=== PATIENT | male | born 1960 | race Caucasian/White ===

== ENCOUNTER 2018-09-14 11:19 | Emergency (ER) | payer OTHER, MEDICAID ==
--- NOTE | 2018-09-14 11:26 | EDPHY ---
H & P Time Seen by Provider: 09/14/18 11:21 HPI/ROS: CHIEF COMPLAINT: Episode of unresponsiveness HISTORY OF PRESENT ILLNESS: 58-year-old male with autism and seizure disorder presents after an episode of unresponsiveness. He was at the crisis Center and suddenly began staring off into space. This happened several times and staff felt that he was having an absence seizure. He apparently has a history of seizure disorder since childhood consisting of episodes of staring off into space. Not taking seizure medications. REVIEW OF SYSTEMS: complete 10 point ROS reviewed and is negative except for the noted elements in the HPI - Medical/Surgical History Hx Asthma: No Hx Chronic Respiratory Disease: No Hx Diabetes: No Hx Cardiac Disease: No Hx Renal Disease: No Hx Cirrhosis: No Hx Alcoholism: No Hx HIV/AIDS: No Hx Splenectomy or Spleen Trauma: No Other PMH: aspergers - Social History Smoking Status: Never smoked Alcohol Use: None Drug Use: None Additional Social History: Homeless - Physical Exam Exam: General Appearance: Alert, questions appropriately Eyes: Pupils equal and round, no conjunctival pallor ENT, Mouth: Mucous membranes moist Neck: Normal inspection Respiratory: Lungs are clear to auscultation Cardiovascular: Regular rate and rhythm Gastrointestinal: Abdomen is soft and nontender Neurological: Alert, oriented x3, cranial nerves II through XII intact, motor 5 /5, sensory intact to light touch Skin: Warm and dry Extremities: Normal inspection Psychiatric: Fluctuating affect Constitutional: Initial Vital Signs Temperature (C) 36.8 C 09/14/18 11:19 Heart Rate 91 09/14/18 11:19 Respiratory Rate 16 09/14/18 11:19 Blood Pressure 130/94 H 09/14/18 11:19 O2 Sat (%) 98 09/14/18 11:19 O2 Delivery Mode Room Air Allergies/Adverse Reactions: No Known Allergies Allergy (Unverified 06/18/18 17:18) Medical Decision Making - Diagnostics EKG Interpretation: EKG interpreted by me reveals sinus rhythm, rate 82, short FL interval, no ST or T segment changes. Interpretation: Borderline EKG. ED Course/Re-evaluation: This patient presents after possible absence seizure. He was observed in the emergency department and asymptomatic throughout his emergency department stay. I strongly encouraged him to follow up at the [facility] homeless outreach. I do not feel that he needs further evaluation or seizure medication today. Seizure precautions given. Differential Diagnosis: Differential diagnosis includes though it is not limited to status epilepticus, hypoglycemia, intracranial hemorrhage, CVA, benzodiazepine withdrawal, alcohol withdrawal, epilepsy. - Data Points Laboratory Results: Laboratory Results 09/14/18 11:25 09/14/18 11:25 09/14/18 09/14/18 11:25 11:25 WBC 9.13 10^3/uL 10^3/uL (3.80-9.50) RBC 5.07 10^6/uL 10^6/uL (4.40-6.38) Hgb 15.2 g/dL g/dL (13.7-17.5) Hct 44.6 % % (40.0-51.0) MCV 88.0 fL fL (81.5-99.8) MCH 30.0 pg pg (27.9-34.1) MCHC 34.1 g/dL g/dL (32.4-36.7) RDW 13.0 % % (11.5-15.2) Plt Count 269 10^3/uL 10^3/uL (150-400) MPV 11.3 fL fL (8.7-11.7) Neut % (Auto) 79.2 % H % (39.3-74.2) Lymph % (Auto) 15.6 % % (15.0-45.0) [place] % (Auto) 4.5 % % (4.5-13.0) Eos % (Auto) 0.2 % L % (0.6-7.6) Baso % (Auto) 0.3 % % (0.3-1.7) Nucleat RBC Rel Count 0.0 % % (0.0-0.2) Absolute Neuts (auto) 7.23 10^3/uL H 10^3/uL (1.70-6.50) Absolute Lymphs (auto) 1.42 10^3/uL 10^3/uL (1.00-3.00) Absolute Monos (auto) 0.41 10^3/uL 10^3/uL (0.30-0.80) Absolute Eos (auto) 0.02 10^3/uL L 10^3/uL (0.03-0.40) Absolute Basos (auto) 0.03 10^3/uL 10^3/uL (0.02-0.10) Absolute Nucleated RBC 0.00 10^3/uL 10^3/uL (0-0.01) Immature Gran % 0.2 % % (0.0-1.1) Immature Gran # 0.02 10^3/uL 10^3/uL (0.00-0.10) Sodium 136 mEq/L mEq/L (135-145) Potassium 4.1 mEq/L mEq/L (3.5-5.2) Chloride 102 mEq/L mEq/L (97-110) Carbon Dioxide 24 mEq/l mEq/l (22-31) Anion Gap 10 mEq/L mEq/L (6-14) BUN 21 mg/dL mg/dL (7-23) Creatinine 0.8 mg/dL mg/dL (0.7-1.3) Estimated GFR > 60 Glucose 168 mg/dL H mg/dL (70-100) Calcium 9.7 mg/dL mg/dL (8.5-10.4) Ethyl Alcohol < 10 mg/dL mg/dL (0-10) Departure - Departure Disposition: Home, Routine, Self-Care Clinical Impression: Absence seizure Condition: Good Instructions: Epilepsy (ED) Additional Instructions: Your blood sugar is elevated today. You may have diabetes. Follow-up at [facility] for further evaluation. The [facility] has walk-in appointments for the homeless at the following days/locations. No appointment is needed. Monday 8-10 am @ [facility] 11 AM-1 PM @ [facility] Monday 8-10:30 AM @ [facility] Monday 8-10 AM @ [facility] 2-4 PM @ [facility] Monday 8-10 AM @ [facility] Referrals: [facility],. [Clinic] - As per Instructions
[2018-09-14 11:44] LABS: PLATELET COUNT 269 10^3/uL (150-400)
[2018-09-14 12:25] VITALS: BP 145/82
--- NOTE | 2018-09-14 14:57 | CPEKG ---
Test Reason : OPEN Blood Pressure : / mmHG Vent. Rate : 081 BPM Atrial Rate : 082 BPM P-R Int : 091 ms QRS Dur : 080 ms QT Int : 361 ms P-R-T Axes : 056 -06 062 degrees QTc Int : 419 ms Sinus rhythm Short [place] interval Confirmed by Divina Ybarra ([id number]) on 09/14/2018 2:56:04 PM Referred By: DIVINA YBARRA Confirmed By:Divina Ybarra
--- NOTE | 2018-09-14 16:38 | ASMTCMCOM ---
CM Note CM Note Notes: Pt presented to the ED via EMS after having a seizure at [facility]. Pt was discharged from the ED before CM could speak to him. See CM Report 06/22/18 for additional background info. CM called [place] at [facility] and spoke w/PATO Hernandez Baker Helper and she states that pt was last seen there in 2017. Mary states she has spoken w/P and will hopefully be able to coordinate scheduling a follow-up appt for the pt. Mary states she think after pt was discharged from the ED, the pt went to [facility] to see about qualifying for a respite bed. Per CM Report 06/22/18, pt has stayed at [facility] in the past but prefers to sleep outside. Pt aware of the [facility]. CM available for further assistance if needed. Date Signed: 09/14/2018 04:38 PM Electronically Signed By:Hannah Lazo RN
== END 2018-09-14 12:23 | disposition home or self-care (01) ==
LOC: EDUNIT#
DX: G40.A09 Absence epileptic syndrome, not intractable, without status epilepticus (principal); F84.0 Autistic disorder; Z59.0 Homelessness
CPT/HCPCS: G0480

== ENCOUNTER 2018-09-16 12:02 | Emergency (ER) | payer OTHER, MEDICAID ==
--- NOTE | 2018-09-16 12:11 | EDPHY ---
General - History Smoking Status: Never smoked Time Seen by Provider: 09/16/18 12:05 Narrative: CLINICAL IMPRESSION: Altered mentation ASSESSMENT/PLAN: Patient is a 58-year-old male with a history of autism and seizure disorder currently on no medications who presents to the emergency department with altered mentation. Patient is afebrile, not toxic-appearing. He is alert to name only on initial evaluation. CT head revealed no evidence of acute abnormality, no evidence of intracranial hemorrhage or trauma. CBC revealed no evidence of leukocytosis, BMP grossly unremarkable. U tox positive for cannabinoids only. Alcohol negative. Urine negative for infectious process. There were no findings to suggest infectious process, traumatic head injury, seizure, TIA, CVA, metabolic abnormality, acute intoxication or toxidrome. Patient was evaluated by case management, he has been currently residing at the [facility] and staff there report that he is normally high functioning and this is not his baseline. Upon re-examination the patient reports psychiatric history however unsure of exact diagnosis, will have a formal psychiatric evaluation the emergency department. The patient remained hemodynamically stable under my care and denied any physical complaints. Dr. Gold will resume care of this patient at this time. Dispo pending. DIFFERENTIAL DX: Differential diagnosis including but not limited to and in no certain order head injury, seizure, infectious process, TIA, CVA, metabolic abnormality, intoxication, medication side effect ED COURSE: 1421: Dr. York evaluated this patient at this time. Patient denies any physical complaints. Will proceed with formal case management consult and formal psych evaluation. 1525: Case management spoke with respite care and confirmed that patient is normally very high functioning, alert and oriented. This is very unusual behavior for him. 1610: Patient finally able to give a urine specimen, no evidence of infection, positive for cannabinoids only. On repeat examination the patient is alert to person place and time. He believes that he broke into someone's house as he does not recall where he was staying. He just remembers being in someone's house and police finding him. He [place] [address]. 1620: Discussed case with case management again, patient discloses to her at this time that he does have a history of depression, PTSD and has a diagnosis of possible schizophrenia or schizoaffective disorder, he is unsure which. Will proceed with formal psychiatric evaluation at this time. 1701: Formal psych evaluation is still pending a this time. Patient is still alert and oriented, he denies any physical complaints. Case discussed with Dr. Gold. CHIEF COMPLAINT: Altered mentation HPI: Patient is a 58-year-old male currently homeless staying in respite care, medical history of seizure disorder not on any current medication regimen who presents to the emergency department with concerns of altered mentation. Patient was brought in by EMS, per EMS staff at the [facility] became concerned as the patient appeared to be altered. Patient was alert to name only , very confused as to why he is brought into the emergency department. On my examination the patient is only certain about his name, does not know his date of , location or medical history. Patient reports he was sitting in his room, resting when the police showed up. He denies any illicit drug use, recent illness including fever, trauma or psychiatric history. Patient is a very poor historian. PMH: Autism, Seizure disorder Pertinent Past Surgical History: Denies Family History: Noncontributory Social History: Denies cigarette smoking, denies alcohol use and denies illicit drug use. REVIEW OF SYSTEMS: All other systems negative Constitutional: No fever, no chills, appetite change. Eyes: No discharge, vision change ENT: No sore throat, congestion, ear pain. Cardiovascular: No chest pain, no palpitations. Respiratory: No cough, no shortness of breath. Gastrointestinal: No abdominal pain, no vomiting, diarrhea. Genitourinary: No hematuria, dysuria, flank pain, pelvic pain Musculoskeletal: No back pain, joint swelling, joint pain, myalgias. Skin: No rashes, color change. Neurological: Confused. No headache, dizziness, weakness. PHYSICAL EXAM: General Appearance: Alert to name only. He is in no acute distress and not toxic-appearing. HENT: Normocephalic, atraumatic. Bilateral external ears are normal. Bilateral tympanic membranes are normal with pearly eason reflex. Nares are clear, mucosa is pink. Oropharynx is clear, mucosa is dry, uvula is midline. There is no tonsillar enlargement or exudate. Poor overall dentition. Eyes: PERRLA, no acute vision change, nystagmus, swelling, discharge, pain or photosensitivity. Conjunctiva pink, no pallor or injection. Neck: Supple, nontender, no lymphadenopathy, no midline pain, FROM, no meningismus. Respiratory: There are no retractions, lungs are clear to auscultation. Cardiac: Regular rate and rhythm, no murmurs or gallops. Gastrointestinal: Abdomen is soft, nontender, bowel sounds normal, no masses/ hernia, no rigidity, guarding or focal peritoneal findings. Neurological: MENTAL STATUS: Patient is alert and oriented to person only. Attention and concentration are normal. Found knowledge is appropriate to level of education. Mood and affect normal. SPEECH: Language including naming, repetition, comprehension, and spontaneous speech are normal. No dysarthria or dysphagia. CRANIAL NERVES: II: Visual kerr are full to confrontation. Vision is grossly intact. III, IV, : Pupils are equal, round, reactive to light. Extraocular eye movements are full and without nystagmus. V: Facial sensation is intact to touch symmetrically in all 3 divisions. VII: Face is symmetric at rest with no asymmetry of grimace or evidence of facial weakness. VIII: Hearing is intact bilaterally to finger rub. IX, X: Palate is midline and elevates symmetrically with intact cough/gag. XI: Sternocleidomastoid and trapezius strength is normal. XII: Tongue protrudes midline without atrophy or fasciculations. MOTOR: Normal bulk and tone symmetrically in the upper and lower extremities. Upper extremities: shoulder abduction, elbow flexion, elbow extension, flexion of fingers and finger abduction strength 5/5 bilaterally. Lower extremities: hip flexion, knee flexion and extension, plantar and dorsiflexion of foot, and great toe extension strength 5/5 bilaterally. No pronator drift. SENSORY: Sensation is intact to light touch and symmetric in the UE's in LE's bilaterally. Romberg is negative. COORDINATION: Fine motor and rapid alternating movements are normal. Finger to nose is normal bilaterally. [id number] is normal bilaterally. No abnormal movements noted. There is no tremor at rest or with posture or action. GAIT/STATION: Casual, straightforward gait is normal. Patient can walk on toes and on heels. No gait instability. Skin: Warm, dry, no rashes, no nodules on palpation. Musculoskeletal: Extremities are symmetrical, full range of motion, no tenderness, deformity, swelling, or erythema. Psychiatric: Patient is oriented X 3, there is no agitation. MEDICAL DECISION MAKING: Patient was seen independently. Secondary supervising physician at time of evaluation was Dr. York, he briefly evaluated this patient. Diagnosis: Altered mentation. New, requires workup Summary: See Assessment and Plan for summary of ED visit Clinical lab tests: ordered / reviewed. Independent visualization of images, tracing, or specimens: Yes. Decision to obtain medical records or history from someone other than the patient: Yes, EMS Review / Summarize previous medical records: Yes Discussed patient with another provider: Yes, Dr. York, Dr. Gold Patient Progress: Stable, dispo pending. (Palak Santos) Medical Decision Making: PHYSICIAN DOCUMENTATION: The patient was evaluated and managed by the Physician Field Machinist and myself. I have reviewed the chart and agree with the findings and plan of care as documented. In addition, I examined the patient myself at 1415. History confirmed as autism, no trauma. Physical findings as follows: Flat affect, is thirsty, no tongue laceration or abrasion. Altered but unclear what is acute versus chronic, likely needs case management and psychiatric evaluation. Patient mental status is the same now as when he entered the department. Did not bite his tongue, was not incontinent, I think seizure would be less likely. Discussed with Hannah from case management at 2:25 p.m.. 1500: Signed out to Dr. Gold plan for case management psychiatric evaluation. I am the secondary supervising physician. (Jonathan York) I took over care of this patient at 3:00 p.m.. Please see above. This patient presented to the emergency department with altered mental status. The patient has a history of autism. Currently the patient is awaiting case management consultation and psychiatric evaluation. 6:00 p.m.. I spoke with case management, Hannah, regarding this patient. [facility] reviewed the case. At this time they do not feel the patient needs to be acutely evaluated in the emergency department. The patient is now alert and oriented. His presentation is consistent with a possible seizure. His workup in the emergency department has been reassuring. Hannah is to confirm that he will be accepted back to the [facility] or [facility] which is formally [facility]. The patient will then be followed up by [facility] who are aware of his presentation here gisela. We will also have him followed up by [facility] tomorrow as well. This will be coordinated with staff at [facility]. 6:10 p.m., the patient was re-evaluated, he is drinking juice. He is listening to music in sitting upright in his gurney. He is alert and oriented x3. I discussed the plan for discharge back to [facility] and his follow-up. He feels comfortable with this. Return to emergency department precautions have been reviewed with him. All of his questions were answered. The patient was discharged back to [facility] in good condition by taxi voucher. (Jaqueline Gold) - Diagnostics Imaging Results: Imaging Impressions Head CT 09/16/18 12:19 Impression: Normal CT scan of the head. Results called and discussed with JADEN Cardoza on 09/16/2018 at 13:13. - Objective Vital Signs: Initial Vital Signs Temperature (C) 37.2 C 09/16/18 12:19 Heart Rate 76 09/16/18 12:19 Respiratory Rate 16 09/16/18 12:19 Blood Pressure 169/102 H 09/16/18 12:19 O2 Sat (%) 99 09/16/18 12:19 O2 Delivery Mode Room Air Allergies/Adverse Reactions: No Known Allergies Allergy (Unverified 06/18/18 17:18) Laboratory Results: Laboratory Results 09/16/18 12:47 09/16/18 12:47 09/16/18 09/16/18 09/16/18 15:30 15:30 12:47 WBC RBC Hgb Hct MCV MCH MCHC RDW Plt Count MPV Neut % (Auto) Lymph % (Auto) [place] % (Auto) Eos % (Auto) Baso % (Auto) Nucleat RBC Rel Count Absolute Neuts (auto) Absolute Lymphs (auto) Absolute Monos (auto) Absolute Eos (auto) Absolute Basos (auto) Absolute Nucleated RBC Immature Gran % Immature Gran # Sodium 135 mEq/L mEq/L (135-145) Potassium 4.5 mEq/L mEq/L (3.5-5.2) Chloride 106 mEq/L mEq/L (97-110) Carbon Dioxide 23 mEq/l mEq/l (22-31) Anion Gap 6 mEq/L mEq/L (6-14) BUN 11 mg/dL mg/dL (7-23) Creatinine 0.7 mg/dL mg/dL (0.7-1.3) Estimated GFR > 60 Glucose 101 mg/dL H mg/dL (70-100) Calcium 9.6 mg/dL mg/dL (8.5-10.4) Urine Color YELLOW Urine Appearance CLEAR Urine pH 5.0 (5.0-7.5) Ur Specific Tobias 1.024 (1.002-1.030) Urine Protein NEGATIVE (NEGATIVE) Urine Ketones 1+ H (NEGATIVE) Urine Blood NEGATIVE (NEGATIVE) Urine Nitrate NEGATIVE (NEGATIVE) Urine Bilirubin NEGATIVE (NEGATIVE) Urine Urobilinogen NEGATIVE EU EU (0.2-1.0) Ur Leukocyte Esterase NEGATIVE (NEGATIVE) Urine Glucose NEGATIVE (NEGATIVE) Urine Opiates Screen NEGATIVE (NEGATIVE) Urine Barbiturates NEGATIVE (NEGATIVE) Ur Phencyclidine Scrn NEGATIVE (NEGATIVE) Ur Amphetamine Screen NEGATIVE (NEGATIVE) U Benzodiazepines Scrn NEGATIVE (NEGATIVE) Urine Cocaine Screen NEGATIVE (NEGATIVE) U Marijuana (THC) Screen NON-NEGATIVE H (NEGATIVE) Ethyl Alcohol < 10 mg/dL mg/dL (0-10) 09/16/18 12:47 WBC 9.33 10^3/uL 10^3/uL (3.80-9.50) RBC 5.23 10^6/uL 10^6/uL (4.40-6.38) Hgb 16.0 g/dL g/dL (13.7-17.5) Hct 47.4 % % (40.0-51.0) MCV 90.6 fL fL (81.5-99.8) MCH 30.6 pg pg (27.9-34.1) MCHC 33.8 g/dL g/dL (32.4-36.7) RDW 12.5 % % (11.5-15.2) Plt Count 252 10^3/uL 10^3/uL (150-400) MPV 11.0 fL fL (8.7-11.7) Neut % (Auto) 80.8 % H % (39.3-74.2) Lymph % (Auto) 13.8 % L % (15.0-45.0) [place] % (Auto) 4.6 % % (4.5-13.0) Eos % (Auto) 0.1 % L % (0.6-7.6) Baso % (Auto) 0.3 % % (0.3-1.7) Nucleat RBC Rel Count 0.0 % % (0.0-0.2) Absolute Neuts (auto) 7.53 10^3/uL H 10^3/uL (1.70-6.50) Absolute Lymphs (auto) 1.29 10^3/uL 10^3/uL (1.00-3.00) Absolute Monos (auto) 0.43 10^3/uL 10^3/uL (0.30-0.80) Absolute Eos (auto) 0.01 10^3/uL L 10^3/uL (0.03-0.40) Absolute Basos (auto) 0.03 10^3/uL 10^3/uL (0.02-0.10) Absolute Nucleated RBC 0.00 10^3/uL 10^3/uL (0-0.01) Immature Gran % 0.4 % % (0.0-1.1) Immature Gran # 0.04 10^3/uL 10^3/uL (0.00-0.10) Sodium Potassium Chloride Carbon Dioxide Anion Gap BUN Creatinine Estimated GFR Glucose Calcium Urine Color Urine Appearance Urine pH Ur Specific Tobias Urine Protein Urine Ketones Urine Blood Urine Nitrate Urine Bilirubin Urine Urobilinogen Ur Leukocyte Esterase Urine Glucose Urine Opiates Screen Urine Barbiturates Ur Phencyclidine Scrn Ur Amphetamine Screen U Benzodiazepines Scrn Urine Cocaine Screen U Marijuana (THC) Screen Ethyl Alcohol Departure - Departure Disposition: Home, Routine, Self-Care Clinical Impression: Transient alteration of awareness Condition: Good Instructions: Altered Mental Status (ED) Additional Instructions: Read and follow provided instructions. Follow-up with your primary care physician at [facility] in 1-2 days for re -evaluation as discussed. You can go to their walk-in clinic. Your also to follow up with [facility] tomorrow at [address]. Return to the emergency department for seizure, fainting, or other serious concerns. Referrals: [facility],. [Clinic] - As per Instructions [facility] [Outside] - As per Instructions
[2018-09-16 13:01] LABS: PLATELET COUNT 252 10^3/uL (150-400)
[2018-09-16 18:38] VITALS: BP 125/76
--- NOTE | 2018-09-16 19:40 | ASMTCMCOM ---
CM Note CM Note Notes: Pt presented to the ED via EMS for AMS & paranoia after being found obtunded in his room at [facility]. Pt was initially disoriented and received a neurological workup for possible seizure (pt was also seen in the ED on 09/14/18 for possible seizures). Spoke w/Surendra Joe, [facility] Respite Window Repairer and therapist (c: [phone] - this # is for CM use only). Surendra states pt had missed an appt w/him this morning and so he went to pt's room and found him breathing but otherwise obtunded/unresponsive; but after pt did awaken/respond he was very disoriented so he called 911. Surendra states he believes pt is normally high functioning w/Asperger's syndrome. Surendra requested CM to have pt sign an SOFIYA for [facility] to release information to [facility]. Pt is now presenting AxOx3 so CM completed the SOFIYA w/the pt and he signed it; copy placed in pt's e-chart & a copy faxed to [facility] C[facility] office (f:[phone]). The ED provider assessed pt and pt's head CT scan, labs, etc. were WNL/negative. The ED provider does not think the pt had a seizure and would like the pt to be considered for a mental health eval. CM communicated updates to the [facility] team and they spoke w/the patient and C.I[facility] and also reviewed pt's recent assessment w/[facility] Overall, [facility] does not think pt needs a formal mental health eval and thinks he can be discharged back to respite & to follow up with [facility] outpatient. FADY relayed this to the ED provider and ED RN. Pt is AxOx3, stable and ambulating well without assistance, he ate and drank sufficient meals in the ED. Pt is agreeable w/returning to respite. CM called [facility] Respite ([phone]) and Surendra and left voicemails requesting calls back re:arranging for pt to return to respite. CM called [facility] and spoke w/Kenneth who was able to speak to Surendra and confirmed pt is able to return to respite tonight. Kenneth will meet pt at the respite house and help him get back into his room. CM arranged for a cab to transport pt. Pt is followed by [facility] and [facility] at the [facility]. CM to follow-up w/pt, [facility], and [facility] tomorrow to ensure pt gets follow-up appt re:possible seizure disorder / additional outpatient testing. Date Signed: 09/16/2018 07:39 PM Electronically Signed By:Hannah Lazo RN
== END 2018-09-16 18:45 | disposition home or self-care (01) ==
LOC: EDUNIT#
DX: R41.82 Altered mental status, unspecified (principal); F84.0 Autistic disorder; G40.909 Epilepsy, unspecified, not intractable, without status epilepticus; Z79.899 Other long term (current) drug therapy; Z59.0 Homelessness
CPT/HCPCS: 80305; G0480

== ENCOUNTER → 2018-10-12 | Outpatient (CLI) | payer OTHER, MEDICAID ==
[~2018-10-12] MED LIST: GADOBUTROL 10 ML VIAL IVP ONE
== END ==
LOC: FIMAGING 12:43
PROVIDERS: ATTEND Psychiatry & Neurology Neurology
DX: R40.4 Transient alteration of awareness (principal); G93.89 Other specified disorders of brain
CPT/HCPCS: 70553; A9585

== ENCOUNTER 2019-01-14 12:26 | Emergency (ER) | payer OTHER, MEDICAID | END 2019-01-14 13:06 | disposition home or self-care (01) ==